=== PATIENT | male | born 1965 | race Caucasian/White ===

== ENCOUNTER 2025-07-27 13:28 | Outpatient (CLI) | payer OTHER, SELFPAY | END 2025-07-27 13:29 | disposition home or self-care (01) | LOC: AMB 07-29 16:51 | PROVIDERS: Visit Provider Emergency Medicine | DX: R53.1 Weakness (principal); R42 Dizziness and giddiness; R11.10 Vomiting, unspecified | CPT/HCPCS: A0425; A0429 ==